=== PATIENT | male | born 1980 | race Caucasian/White ===

== ENCOUNTER → 2023-02-19 09:40 | Outpatient (BNVA) | payer OTHER, SELFPAY | PROVIDERS: PCP Hospitalist; Visit Provider Physician Assistant Medical | DX: T22.292A Burn of second degree of multiple sites of left shoulder and upper limb, except wrist and hand, initial encounter (principal); X08.8XXA Exposure to other specified smoke, fire and flames, initial encounter | CPT/HCPCS: 97597; 99203 ==

== ENCOUNTER → 2023-02-22 09:41 | Outpatient (BNVA) | payer OTHER, SELFPAY | PROVIDERS: PCP Hospitalist; Visit Provider Physician Assistant Medical | DX: T22.20XA Burn of second degree of shoulder and upper limb, except wrist and hand, unspecified site, initial encounter (principal); X08.8XXA Exposure to other specified smoke, fire and flames, initial encounter | CPT/HCPCS: 99213 ==

== ENCOUNTER → 2023-02-27 08:25 | Outpatient (BNVA) | payer OTHER, SELFPAY | PROVIDERS: PCP Hospitalist; Visit Provider Physician Assistant Medical | DX: T22.20XA Burn of second degree of shoulder and upper limb, except wrist and hand, unspecified site, initial encounter (principal); X08.8XXA Exposure to other specified smoke, fire and flames, initial encounter | CPT/HCPCS: 99213 ==

== ENCOUNTER → 2023-03-06 08:56 | Outpatient (BNVA) | payer OTHER, SELFPAY | PROVIDERS: PCP Hospitalist; Visit Provider Internal Medicine | DX: T22.20XA Burn of second degree of shoulder and upper limb, except wrist and hand, unspecified site, initial encounter (principal); X08.8XXA Exposure to other specified smoke, fire and flames, initial encounter | CPT/HCPCS: 99213 ==

== ENCOUNTER → 2023-03-12 10:42 | Outpatient (BNVA) | payer OTHER, SELFPAY | PROVIDERS: PCP Hospitalist; Visit Provider Internal Medicine | DX: T22.20XD Burn of second degree of shoulder and upper limb, except wrist and hand, unspecified site, subsequent encounter (principal); X08.8XXD Exposure to other specified smoke, fire and flames, subsequent encounter | CPT/HCPCS: 99213 ==

== ENCOUNTER → 2023-03-19 09:41 | Outpatient (BNVA) | payer OTHER, SELFPAY | PROVIDERS: PCP Hospitalist; Visit Provider Internal Medicine | DX: T22.252D Burn of second degree of left shoulder, subsequent encounter (principal); X08.8XXD Exposure to other specified smoke, fire and flames, subsequent encounter | CPT/HCPCS: 99213 ==

== ENCOUNTER → 2023-03-26 09:40 | Outpatient (BNVA) | payer OTHER, SELFPAY | PROVIDERS: PCP Hospitalist; Visit Provider Internal Medicine | DX: T22.20XD Burn of second degree of shoulder and upper limb, except wrist and hand, unspecified site, subsequent encounter (principal); X08.8XXD Exposure to other specified smoke, fire and flames, subsequent encounter | CPT/HCPCS: 99213 ==

== ENCOUNTER 2024-09-15 09:23 | Day surgery (SDC) | payer OTHER, SELFPAY ==
[2024-09-11 14:39] VITALS: BMI 31.3
--- NOTE | 2024-09-15 09:02 | P.CONAN_ITS ---
[facility] Past Medical History Medical History History of torsion of testis Vitamin D deficiency PTSD (post-traumatic stress disorder) Allergic rhinitis Mild intermittent asthma HLD (hyperlipidemia) Surgical History Surgical History History of nasal surgery History of Problems with Anesthesia: No Social History Social History Housing: House Are you a primary behavioral health care coordinator to a significant other at home: No Do you presently have visiting nurse or other home services: No Patient Tobacco Use Status: Never used Tobacco Substance Use Frequency: Occasionally Have you been hit, kicked, punched, or otherwise hurt by someone within the past year? If so, by whom?: No Are you DNR?: No Advance Directives: No Advance Directives Information Provided: Yes Recently lost weight without trying: No Nutrition Risks: No Nutritional Risk service: Yes Current occupational status: employed Current occupation: [employer] Allergies Allergy/AdvReac Type Severity Reaction Status Date / Time bee pollen [bee stings] Allergy Unknown Verified 09/15/24 09:53 Home Medications ?Medication ?Instructions ?Recorded ?Confirmed ?Last Taken ?Type albuterol sulfate 90 mcg/actuation 1 puff inhalation 6XD PRN 09/11/24 09/11/24 Unknown History aerosol inhaler Shortness Of Breath Or Wheezing cetirizine 10 mg tablet 10 mg PO DAILY 09/11/24 09/11/24 Unknown History fluticasone propionate 50 1 spray intranasal BID PRN 09/11/24 09/11/24 Unknown History mcg/actuation nasal Shortness Of Breath Or Wheezing spray,suspension ibuprofen 600 mg tablet 600 mg PO Q8H PRN Pain 09/11/24 09/11/24 Unknown History rosuvastatin 10 mg tablet 10 mg PO DAILY 09/11/24 09/11/24 Unknown History Exam Height,Weight and Vital Signs: Height 5 ft 11 in Weight 101.775 kg Airway Mallampati Class: III TM Dist: >3cm Neck ROM: Full Loose/Missing/Broken Teeth: No Heart: RRR Lungs: CTA Assessment and Plan Assessment Anesthesia Assessment: Anesthesia Plan Discussed and Chart Reviewed Final Anesthetic Review History of Problems with Anesthesia: No NPO: Yes ASA Class: II Final Preanesthetic Review: Meds/Allgs Chart Reviewed, Consent Obtained/Reviewed and Anes Risks/Benef Reviewed Patient Risk: Low Procedure Risk: Low Anesthetic Plan Anesthetic Plan: MAC: Disposition: Standard PACU
[2024-09-15 09:51] VITALS: BMI 31.4
[2024-09-15] MEDS: Lactated Ringers 1,000 ML 80 ML IVCONT (10:03)
[2024-09-15 10:10] VITALS: BP 133/78; PULSE 76; RESP 18; TEMP 36.7; O2SAT 99
[2024-09-15 11:20] VITALS: BP 89/56; PULSE 74; RESP 16; TEMP 36.1; O2SAT 94
--- NOTE | 2024-09-15 11:27 | PM.OP ---
Brief Operative Note Date of Service: 09/15/24 Pre-op diagnosis: Screening Post-op diagnosis: other (Colon polyps) Procedure: Colonoscopy to the cecum and TI with bx/removal of polyp and cold snare polypectomy Surgeon: Wes Ambrocio MD Anesthesia: MAC Was an Neurosurgical Nurse Practitioner used for this Procedure?: No Estimated blood loss (mL): 2.0 Pathology: other (A. Polyp at 50cm B. Polyp at 20cm) Condition: stable Disposition: PACU
[2024-09-15 11:32] VITALS: BP 125/72; PULSE 69; RESP 16; TEMP 36.1; O2SAT 97
--- NOTE | 2024-09-15 11:43 | OP_ITS ---
DATE OF SERVICE: 09/15/2024 SURGEON: Wes Ambrocio MD INDICATIONS: The patient presents for evaluation of colorectal cancer screening. Full consent was obtained from him for this, including risks of bleeding and perforation. PREOPERATIVE DIAGNOSIS: Colorectal cancer screening. POSTOPERATIVE DIAGNOSIS: PROCEDURE PERFORMED: Colonoscopy to the cecum and terminal ileum with biopsy and removal of polyp, and cold snare polypectomy. ESTIMATED BLOOD LOSS: COMPLICATIONS: ANESTHESIA: Monitored anesthesia care. ASSISTANTS: SPECIMENS: POSTOPERATIVE DIAGNOSES: Colorectal cancer screening, colon polyps, occasional sigmoid diverticulosis, and small internal hemorrhoids. DESCRIPTION OF PROCEDURE: The patient was placed in the left lateral decubitus position. The digital rectal exam revealed no abnormalities. The Olympus video pediatric colonoscope was entered into the rectum and advanced easily to the cecum. Once in the cecum, I did identify normal-appearing cecal pouch with appendiceal orifice and a normal-appearing ileocecal valve. The terminal ileum was cannulated and appeared normal. The scope was withdrawn back in the colon. The entire cecum and ileocecal valve appeared normal. The scope was slowly withdrawn assessing all mucosal surfaces carefully. Preparation was excellent. At 50 cm was an approximately 3 or 4 mm polyp, which was biopsied and completely removed with cold biopsy forceps. At 20 cm was an approximately 6 mm polyp on a short stalk, which was removed by cold snare polypectomy and recovered by suction. The polypectomy site appeared clean, without any sign of residual polyp nor significant bleeding. I did not visualize any other polyps, colitis, nor angiodysplasia. There was an occasional diverticula noted in the sigmoid colon. In the rectum, scope was retroflexed visualizing some small internal hemorrhoids, but no other pathology. The rectal mucosa appeared normal. The scope was straightened and withdrawn from the patient. He tolerated the procedure well, and was returned to the recovery area in stable condition. IMPRESSION: 1. Colon polyps. 2. Occasional sigmoid diverticulosis. 3. Small internal hemorrhoids. PLAN: The results of the pathology will be checked. If either of these are tubular adenomas, I would recommend a followup colonoscopy in 5 years. He was advised not to use any aspirin or NSAIDs for 1 week. MD MAGDIEL Rooney/MAYUR / [id number]
== END 2024-09-15 11:59 | disposition home or self-care (01) ==
PROVIDERS: PCP Internal Medicine; Visit Provider Internal Medicine
PROC: 0DJD8ZZ Inspection of Lower Intestinal Tract, Via Natural or Artificial Opening Endoscopic (ICD-10-PCS; CPT 45378; principal; 2024-09-15 10:40)
DX: Z12.11 Encounter for screening for malignant neoplasm of colon (principal); D12.5 Benign neoplasm of sigmoid colon; K57.30 Diverticulosis of large intestine without perforation or abscess without bleeding; K64.8 Other hemorrhoids; J45.20 Mild intermittent asthma, uncomplicated; E78.5 Hyperlipidemia, unspecified; E55.9 Vitamin D deficiency, unspecified; F43.10 Post-traumatic stress disorder, unspecified; Z79.1 Long term (current) use of non-steroidal anti-inflammatories (NSAID); Z79.51 Long term (current) use of inhaled steroids; Z79.899 Other long term (current) drug therapy; Z98.890 Other specified postprocedural states
CPT/HCPCS: 45385; 45380; 88305; J2003; J2704